=== PATIENT | male | born 1960 | race African-American/Black ===

== ENCOUNTER 2022-10-23 13:46 | Inpatient (IN) | payer OTHER ==
[2022-10-23 14:44] VITALS: RESP 18; BMI 31.0
[2022-10-23] MEDS ORDERED: AMMONIUM LACTATE 12% LOTION 225 GM BOTTLE TP PRN (21:35)
[2022-10-23] MEDS ORDERED: IBUPROFEN 600 MG TABLET (FP) PO PRN (21:35)
[2022-10-23] MEDS ORDERED: NALOXONE HCL 0.4 MG/ML VIAL IM PRN (21:35)
[2022-10-23] MEDS ORDERED: LOPERAMIDE HCL 2 MG CAPSULE PO PRN (21:35)
[2022-10-23] MEDS ORDERED: BENZOCAINE/MENTHOL (CHLORASEPTIC ) LOZENGE MM PRN (21:35)
[2022-10-23] MEDS ORDERED: P-EPHED 60MG/TRIPROLIDI 2.5MG TABLET PO PRN (21:35)
[2022-10-23] MEDS ORDERED: MAG HYDROX/AL HYDROX/SIMETH 30 ML UNIT-DOSE CUP PO PRN (21:35)
[2022-10-23] MEDS ORDERED: NALOXONE HCL (KLOXXADO) 8 MG SPRAY NS PRN (21:35)
[2022-10-23] MEDS ORDERED: MAGNESIUM HYDROX 2400MG/30ML ORAL SUSPENSION 30 ML CUP PO PRN (21:35)
[2022-10-23] MEDS ORDERED: guaiFENesin 600 MG TABLET.ER (FP) PO PRN (21:35)
[2022-10-23] MEDS ORDERED: POLYETHYLENE GLYCOL (HEALTHYLAX) 3350 17 GM PACKET PO PRN (21:35)
[2022-10-23] MEDS ORDERED: ACETAMINOPHEN 325 MG TABLET (FP) PO PRN (21:35)
[2022-10-23] MEDS ORDERED: IBUPROFEN 400 MG TABLET (FP) PO PRN (21:35)
[2022-10-23] MEDS ORDERED: BENZONATATE 200 MG CAPSULE PO PRN (21:35)
[2022-10-23] MEDS ORDERED: hydrOXYzine PAMOATE 25 MG CAPSULE (FP) PO PRN (21:35)
[2022-10-23] MEDS ORDERED: COLLOIDAL OATMEAL 1 BAR EACH TP PRN (21:35)
[2022-10-23] MEDS ORDERED: NICOTINE POLACRILEX 2 MG GUM BUC PRN (21:35)
[2022-10-23] MEDS ORDERED: ALBUTEROL SO4 0.083% IH SOL 2.5 MG/3 ML VIAL.NEB. NEB PRN (21:38)
[2022-10-23] MEDS ORDERED: MELATONIN 5 MG TABLETS PO SCH (22:00)
[2022-10-23] MEDS ORDERED: THIAMINE HCL 100 MG TABLET (FP) PO SCH (22:00)
[2022-10-24 01:59] VITALS: BP 162/88; PULSE 91; TEMP 97.8
[2022-10-24 03:28] LABS: EPI CELLS 7 /uL (0-25.1); HYALINE CASTS 2 /uL (0-3.1); PH,URINE 5.5 (5.0-8.0); URINE APPEARANCE TURBID; URINE BACTERIA 0 /uL (0-1359); URINE BILIRUBIN 1+ (NEGATIVE); URINE COLOR DK YELLOW; URINE GLUCOSE (UA) NEGATIVE (NEGATIVE); URINE KETONE TRACE (NEGATIVE); URINE LEUK ESTERASE NEGATIVE (NEGATIVE); URINE NITRITE NEGATIVE (NEGATIVE); URINE PROTEIN 4+ (NEGATIVE); URINE RBC 11 /uL (0-23.9); URINE WBC 6 /uL (0-25.8)
[2022-10-24] MEDS ORDERED: PRENATAL VITAMINS W/ FOLIC ACID TABLET (FP) PO SCH (10:00)
== END 2022-10-24 09:20 | disposition left against medical advice (07) | DRG 770 ==
LOC: YASAS 13:46 → Y5N 21:36
PROVIDERS: ADMIT Allergy & Immunology; ATTEND Psychiatry & Neurology Pain Medicine
PROC: HZ42ZZZ Group Counseling for Substance Abuse Treatment, Cognitive-Behavioral (ICD-10-PCS; principal; 2022-10-23)
DX: F14.20 Cocaine dependence, uncomplicated (principal); F10.10 Alcohol abuse, uncomplicated; F17.210 Nicotine dependence, cigarettes, uncomplicated; Z21 Asymptomatic human immunodeficiency virus [HIV] infection status
CPT/HCPCS: 81003; 87635